=== PATIENT | female | born 1995 | race Caucasian/White ===

== ENCOUNTER 2017-02-06 00:15 | Emergency (ER) | payer OTHER ==
[2017-02-06] MEDS ORDERED: LORAZEPAM 2 MG/ML 1 ML VIAL ONE (00:22)
[2017-02-06] MEDS ORDERED: HALOPERIDOL LACTATE 5 MG/ML 1 ML VIAL ONE (00:23)
[2017-02-06 00:33] VITALS: TEMP 36.6; O2SAT 95
[2017-02-06 01:21] LABS: BLOOD UREA NITROGEN 6 mg/dl (7-18); BUN/CREATININE RATIO 6.4 (10-20); CALCIUM 8.9 mg/dl (8.5-10.1); CARBON DIOXIDE 20 mmol/L (21-32); CHLORIDE 112 mmol/L (98-107); GLUCOSE 116 mg/dl (70-99); SODIUM 145 mmol/L (136-145)
--- NOTE | 2017-02-06 06:36 | DIAGNOSTIC IMAGING REPORT ---
CT HEAD WITHOUT CONTRAST (CT) CLINICAL HISTORY: Acute change in mental status COMPARISON STUDY: No previous studies for comparison. TECHNIQUE: Axial CT of the brain is performed from the vertex to the skull base. IV contrast was not administered for this examination. CT DOSE: 537.48 mGy.cm FINDINGS: No intra or extra-axial mass lesions are visualized. There is no CT evidence of acute cortical infarction. There is no evidence of midline shift. There is no acute hemorrhage. No calvarial fractures are visualized. There is no evidence of pathologic ventricular dilatation. There is no evidence of acute sinusitis IMPRESSION: Normal noncontrast head CT. Electronically signed by: Lior Harman M.D. 02/06/2017 6:35 AM Dictated Date/Time: 02/06/2017 6:34 AM
--- NOTE | 2017-02-06 11:26 | EMERGENCY ROOM VISIT NOTE ---
ED Visit Note ED note: Care of this 21-year-old white female patient was signed out to me from Aarti Leon PA-C, at change of shift. Please refer to her dictation for the complete history, physical exam and ED course to this point. Briefly patient is a healthy 21-year-old white female who was brought to the emergency department by ambulance and accompanied by police after she was found to be intoxicated downtown. She was uncooperative with EMS. She required both chemical and physical restraints in the emergency department. She was unable to be fully assessed due to her level of intoxication and subsequent sedation. The patient was observed in the emergency department for over 9 hours. When she was clinically sober, she was reassessed. She reported she was out drinking alcohol with friends last evening. She denies any other coingestions. She last remembers being out at the bar. She did speak with friends who corroborate her story. She has no complaints at this time otherwise than some soreness from the abrasions and contusions. PAST MEDICAL HISTORY: Patient reports she is otherwise healthy without chronic medical illness. SOCIAL HISTORY: Recent graduate from [employer], lives in [place], [place]. Will attend [employer] in the fall. Social EtOH REVIEW OF SYSTEMS: Review of systems as per HPI. All other systems reviewed were negative. 10 systems reviewed. Physical Exam: VITALS SIGNS: Stable, reviewed as per nursing notes. GENERAL: Well-developed, well-nourished 21-year-old white female who is awake and alert and in no acute distress. She smells of vomiting and alcohol. SKIN: No lesions or rash, normal skin turgor. No ecchymosis or erythema. Most of her abrasions noted on the anterior knees and lower legs, and on the forearms. She has an area of ecchymosis on the right forearm as well. HEENT: Normocephalic, atraumatic. Pupils equal, round, reactive to light and accommodation. EOMs intact without nystagmus. Sclera are anicteric. Tympanic membranes intact, with normal landmarks. No hemotympanum. External canals are clear. Oral and nasopharynx are clear. Mucous membranes are moist. Uvula and tongue are midline. Lymphatics palpated without enlargement or tenderness. HEART: Heart sounds are regular, no murmur or gallop or rub is heard. Peripheral pulses are 2+. LUNGS: Lungs are clear to auscultation without crackles, rhonchi, or wheezing. Good air movement. Patient is able to take a deep breath. ABDOMEN: Abdomen was inspected, auscultated and palpated. Bowel sounds were present x 4. Soft, nontender to palpation without hepatosplenomegaly. No masses. No rebound. Negative Frye sign. No pain over McBurney's point. No CVA tenderness. MUSCULOSKELETAL: Gross motor function of the upper and lower extremities is intact and unremarkable. Patient did have a staggering gait. NEUROLOGIC: Gross sensation is intact. The upper and lower extremities and torso via light touch. Responsive to painful stimuli. ED course: The patient was seen and evaluated as above. She was observed until she was clinically sober, and was awake and alert and able to answer questions appropriately. She was completely reexamined, other than superficial abrasions and bruises, there were no other evidence for trauma. The patient had no complaints. She was discharged home and today the care of a friend in stable condition. IMPRESSION: Acute alcohol overdose. DISCHARGE INSTRUCTIONS: DO NOT drive, drink alcohol, operate machinery, or perform dangerous activities today. Rest and drink plenty of fluids. Drink alcohol responsibly and only in moderation. Avoid alcohol until you are 21. Ibuprofen(Motrin, Advil) may be used for fever or pain. Use 600mg every six hours as needed. Take with food. Avoid using more than 2400mg in a 24 hour period. Do not use 2400mg per day for more than three consecutive days without physician direction. Prolonged inappropriate use can lead to stomach upset or ulcers. This is available over the counter and typically comes in 200mg tablets. Return to the ER for vomiting, abdominal pain, severe headache, neck pain, vomiting blood or bloody stools, passing out, worsening of your condition, or as needed.
[2017-02-06 11:47] VITALS: BP 123/66; PULSE 120; O2SAT 98
--- NOTE | 2017-02-07 06:31 | EMERGENCY ROOM VISIT NOTE ---
History First contact with patient: 00:26 Chief Complaint: ALCOHOL OVERDOSE Stated Complaint: ALCOHOL OVERDOSE Nursing Triage Summary: patient presents with [facility] Police and [place] Police after being found unresponsive on [address] and after police assessed patient EMS was called for alcohol intoxication. patient presents to ED swearing at staff, spitting , and angry. patient has abrasions to bilateral knees. patient denied any pain when RN asked questions but patient was shouting " Fuck you " and not answering all questions . History of Present Illness The patient is a 21 year old female who presents to the Emergency Room with complaints of combative behavior with alcohol intoxication. Patient was brought in via EMS with police as she was combative yelling and screaming and kicking at the police. The police were summoned as they were informed there is someonr yelling and screaming downtown. The police state that they found her downtown on [address] laying on the grass on her stomach. She already had abrasions to her knees per the police. They woke her up and she started swinging yelling screaming and spitting at the police. They brought her here. Patient is yelling screaming and spitting at staff and myself and was threatening. She threatened to manuela me and states that she was at DA and was going to manuela me and this whole hospital. She then tried to swing at me and was unwilling to cooperate. I then had to medically sedated her after several warnings. Patient then still proceeded to use profanity at the staff and spitting at the staff. She was then was physically restrained. I was unable to obtain history secondary to patient's combative behavior and altered mental status. Review of Systems Unable to obtain secondary to the combative behavior and altered mental status from alcohol intoxication Past Medical/Surgical History Unable to obtain secondary to the combative behavior and altered mental status from alcohol intoxication Social History Smoking Status: Unknown if Ever Smoked Current/Historical Medications Unable to Obtain Active Prescriptions or Reported Meds Physical Exam Vital Signs Date Time Temp Pulse Resp B/P (MAP) Pulse Ox O2 Delivery O2 Flow Rate FiO2 02/06/17 11:47 120 18 123/66 98 02/06/17 10:30 110 16 104/60 98 Room Air 02/06/17 09:20 109 17 89/53 98 Room Air 02/06/17 08:06 116 14 82/57 97 Room Air 02/06/17 06:32 110 16 105/60 98 Room Air 02/06/17 05:41 124 20 112/70 97 Room Air 02/06/17 04:55 104 20 124/71 97 Room Air 02/06/17 04:09 114 02/06/17 03:55 117 20 103/65 97 Room Air 02/06/17 02:24 106 16 108/80 99 Room Air 02/06/17 00:46 136 02/06/17 00:33 95 Room Air 02/06/17 00:33 36.6 140 18 135/103 95 Room Air 02/06/17 00:33 95 Room Air Physical Exam PHYSICAL EXAM: VITALS: Vitals are noted on the nurse's note and reviewed by myself. Vital signs stable. GENERAL: White female yelling and screaming and spitting at staff with EtOH odor threatening to manuela me and the whole hospital stating that she was a DA, in no acute distress, nondiaphoretic, well-developed well-nourished. The patient is visibly intoxicated. SKIN: Superficial abrasions to bilateral knees The rest of the skin was without obvious lacerations, abrasions, or rashes. There is no tenting of the skin. Capillary reflex less than 2 seconds. HEENT: Normocephalic, atraumatic. PERRLA. EOMI. Conjunctiva with mild injection without icterus. Tympanic membranes without erythema or effusion bilaterally no hemotympanum. External auditory canals are clear. Nares patent bilaterally. No epistaxis. Oropharynx without erythema or exudate. Uvula midline. Oral mucosal moist. No lymphadenopathy. Neck is supple without cervical spine tenderness. HEART: Regular rate and rhythm without murmurs gallops or rubs. Peripheral pulses 2+. LUNGS: Clear to auscultation bilaterally without wheezes, rales or rhonchi. ABDOMEN: Positive bowel sounds x 4. Normal tympanic percussion. Soft, nontender, without masses or organomegaly. MUSCULOSKELETAL: Gross motor function of the upper and lower extremities intact. The patient has a staggering gait. NEUROLOGIC: The patient is visibly intoxicated. Once they were more sober they were alert and oriented to person place and time. Medical Decision & Procedures Laboratory Results 7/14/17 00:33 02/06/17 02:40 Test 02/06/17 00:33 Anion Gap 13.0 mmol/L (3-11) Estimated GFR () 92.6 Estimated GFR (Non- 79.9 BUN/Creatinine Ratio 6.4 (10-20) Calcium Level 8.9 mg/dl (8.5-10.1) Chemistry Specimen Hemolysis Ethyl Alcohol mg/dL 314.0 mg/dl (0-3) Medications Administered Medications (Trade) Dose Ordered Sig/Maida Route Start Time Stop Time Status Last Admin Dose Admin Lorazepam (Ativan Inj) 2 mg STK-MED ONCE .ROUTE 02/06/17 00:22 02/06/17 00:23 DC 02/06/17 00:22 2 MG Haloperidol Lactate (Haldol Inj) 10 mg STK-MED ONCE .ROUTE 02/06/17 00:23 02/06/17 00:24 DC 02/06/17 00:23 10 MG ED Course Prior records/ancillary studies reviewed. Triage Nursing notes reviewed. Additional history obtained from police and EMS. The patient's history was concerning for altered mental status and a possible alcohol overdose and combative behavior. Differential diagnosis: Etiologies such as alcohol intoxication, toxicologic, infection, hypoglycemia, electrolyte abnormalities, cardiac sources, intracerebral event, neurologic, as well as others were entertained. Physical examination: As above. The patient is clinically intoxicated. no trauma noted. ER treatment provided: Monitoring, Ativan, Haldol, restraints Aspiration precautions The patient was frequently reassessed. Diagnostic interpretation by me: Cardiac monitoring did not reveal any evidence of dysrhythmia. The labs reviewed. The patient's blood alcohol level was 311 mg/dL. Imaging studies: Head CT was negative per stat radiology Patient was extremely combative and unwilling to cooperate. She was swinging and spitting and yelling at staff. She is threatening to manuela the whole hospital and myself stating that she was a DA. Patient then tried to swing at me and was unwilling to cooperate. She was then medically sedated for her safety and the staff and physically restrained. Patient then still continue to use profanity and was spitting at the staff. Since patient was found laying on the ground there was concern for possible head injury so did opt to do a CT scan which was negative. Once patient settled down and the restraints were removed. She was reassessed multiple times throughout her stay. Patient was still comatose at change shift and was signed out to Tara Waite PA-C pending patient sobering up and reevaluation in stable condition. This appears to be consistent with an overdose of alcohol with knee abrasions and combative behavior. Patient was reassessed multiple times. Her alcohol was quite high. Case reviewed with my attending. Medical Decision As above Impression Primary Impression: Alcoholic intoxication Additional Impressions: Combative behavior Multiple abrasions Critical Care I have personally spent greater than 30 minutes of critical care time in the direct management of this patient. This includes bedside care, interpretation of diagnostic studies, and testing, discussion with consultants, patient, and family members, and other required patient management activities. This 30 minutes is in excess of all separately billable procedures. Departure Information Dispostion Home / Self-Care Condition GOOD Prescriptions Unable to Obtain Active Prescriptions or Reported Meds Referrals No Doctor, Assigned (PCP) Forms HOME CARE DOCUMENTATION FORM, IMPORTANT VISIT INFORMATION Patient Instructions My [facility] Additional Instructions Antibiotic ointment and bandage to the areas until healed. Follow up with family doctor or return for any signs of infection (increasing redness, swelling , drainage, or fever). Keep covered when in sun until fully healed then SPF 50 or higher until scar healed. You were extremely combative last night and for your safety and staffs you were medically sedated. You were yelling, screaming, spitting and trying to swing at the staff. Keep well-hydrated. Tylenol every 6 hours as needed for pain (Maximum 3000 mg Tylenol in 24 hr period). Follow up with family doctor and/or health services as needed. No driving for the next 24 hours. Recommend no alcohol for the next 48 hours and avoid binge drinking in the future. Return to ER sooner for chest pain, abdominal pain, worsening signs or symptoms or as needed. Problem Qualifiers Primary Impression: Alcoholic intoxication Complication of substance-induced condition: uncomplicated Qualified Codes: F10.920 - Alcohol use, unspecified with intoxication, uncomplicated
== END 2017-02-06 11:48 | disposition home or self-care (01) ==
LOC: C.EDA 00:17
DX: F10.920 Alcohol use, unspecified with intoxication, uncomplicated (principal); R46.2 Strange and inexplicable behavior; T14.8 Other injury of unspecified body region; X58.XXXA Exposure to other specified factors, initial encounter; Y90.8 Blood alcohol level of 240 mg/100 ml or more